=== PATIENT | male | born 1960 | race Caucasian/White ===

== ENCOUNTER 2018-06-22 11:48 | Emergency (ER) | payer OTHER ==
[~2018-06-22] VITALS: Ht 177.8 cm; Wt 90.7 kg
[2018-06-22 11:48] VITALS: BP_SYST 155
--- NOTE | 2018-06-22 11:48 | NUR ---
Patient to ER bed 6 to gown for evaluation. Side rails up.
--- NOTE | 2018-06-22 12:00 | NUR ---
Pt presents to ER c/o swelling distal to R knee. Pt states that wound below R knee has been drained x 3 in past 4 weeks, states that he was sent over by Dr. Roman to receive an MRI; pt states that he has appointment this Tuesday to have wound checked out. Pt states that he has difficulty ambulating, pain level 5/10 on pain scale.
--- NOTE | 2018-06-22 12:13 | NUR ---
ER Dr. Barahona at bedside examining patient.
--- NOTE | 2018-06-22 12:30 | NUR ---
Dr. Barahona at bedside for I&D of pt's wound on R knee.
[2018-06-22] MEDS ORDERED: LIDOCAINE 1%, 20 ML MDV 20 ML ONE (12:42)
[2018-06-22] MEDS ORDERED: BACITRACIN 1 GM OINT TP ONE (13:21)
--- NOTE | 2018-06-22 13:30 | NUR ---
DR. Barahona on phone with pt's MD Dr. Allred whom pt states sent him over to [facility] for an MRI.
--- NOTE | 2018-06-22 13:38 | NUR ---
Dr. Barahona at bedside speaking with pt addressing pt's concerns.
[2018-06-22 13:45] VITALS: BP_SYST 155
--- NOTE | 2018-06-22 13:45 | NUR ---
Patient given written and verbal discharge instructions and verbalizes understanding. ER MD discussed with patient the results and treatment provided. Patient in stable condition. ID arm band removed. Rx of Clindamycin given. Patient educated on pain management and to follow up with PMD. Pain Scale 3/10. Opportunity for questions provided and answered. Medication side effect fact sheet provided.
== END 2018-06-22 13:45 | disposition home or self-care (01) ==
LOC: SED 11:48
DX: S80.01XA Contusion of right knee, initial encounter (principal); Z88.1 Allergy status to other antibiotic agents; X58.XXXA Exposure to other specified factors, initial encounter; Y93.89 Activity, other specified; Y92.238 Other place in hospital as the place of occurrence of the external cause; Y99.8 Other external cause status
CPT/HCPCS: 20610; 99284; J2001

== ENCOUNTER 2018-06-23 09:37 | Outpatient (CLI) | payer OTHER, SELFPAY | END 2018-06-23 20:07 | disposition home or self-care (01) | LOC: SMI 09:37 | PROVIDERS: ATTEND Internal Medicine | DX: M25.461 Effusion, right knee (principal) | CPT/HCPCS: 73721 ==